=== PATIENT | male | born 1970 | race Caucasian/White ===

== ENCOUNTER 2023-02-04 10:40 | Day surgery (SDC) | payer OTHER ==
[2023-02-04] MEDS ORDERED: Depo-Medrol 40 MG/ML IM ONE (10:41)
[2023-02-04] MEDS ORDERED: Sodium Chloride 0.9(Preservative Free) 10 ML IJ ONE (10:41)
[2023-02-04] MEDS ORDERED: DIPRIVAN 200 MG/20 ML IV ONE (12:49)
--- NOTE | 2023-02-04 14:53 | XRAY ---
Indication: Left L4-S1 transforaminal JOSE DANIEL. Intraoperative fluoroscopy provided for 22 seconds. 3 digital spot image submitted for interpretation demonstrates posterior needle tips projecting over the expected left L4 and L4-L5 nerve roots. Small amount of contrast injected for needle tip placement. Correlate with intraoperative findings/report.
--- NOTE | 2023-02-04 15:05 | XRAY ---
22 seconds of fluoroscopy was used in surgery for a left L4-S1 transforaminal JOSE DANIEL.
[2023-02-04] MEDS ORDERED: Lactated Ringers 1,000 ML IV ONE (15:20)
== END 2023-02-04 13:15 | disposition home or self-care (01) ==
LOC: SDC-PAIN 10:40
PROVIDERS: ATTEND Psychiatry & Neurology Pain Medicine
DX: M54.16 Radiculopathy, lumbar region (principal); Z79.899 Other long term (current) drug therapy
CPT/HCPCS: 64483; 64484; 72100; 77003; J1030; J2704; Q9966

== ENCOUNTER 2023-03-25 12:14 | Day surgery (SDC) | payer OTHER ==
[2023-03-25] MEDS ORDERED: BUPIVACAINE 0.5% VIAL IJ ONE (12:15)
[2023-03-25] MEDS ORDERED: Depo-Medrol 40 MG/ML IM ONE (12:15)
[2023-03-25] MEDS ORDERED: LIDOCAINE HCL 1% 50 MG/5 ML VL PF IJ ONE (12:15)
[2023-03-25] MEDS ORDERED: Decadron 4 MG INJ IV ONE (12:15)
[2023-03-25] MEDS ORDERED: DIPRIVAN 200 MG/20 ML IV ONE ×2 (13:34→13:40)
[2023-03-25] MEDS ORDERED: Lactated Ringers 1,000 ML IV ONE (16:01)
--- NOTE | 2023-03-25 16:34 | XRAY ---
Indication: Bilateral SI joint and bilateral piriformis injection. Intraoperative fluoroscopy provided for 41 seconds. 7 digital spot images submitted for interpretation demonstrates posterior needle tip projecting over the expected left and right SI joint. Additional posterior needle tips projects over the left and right piriformis muscles with small amount of contrast injected for needle tip placement. Correlate with intraoperative findings/report.
--- NOTE | 2023-03-25 16:50 | XRAY ---
41 seconds of fluoroscopy was used in surgery for a bilateral sacroiliac joint and bilateral piriformis injection.
== END 2023-03-25 14:03 | disposition home or self-care (01) ==
LOC: SDC-PAIN 12:14
PROVIDERS: ATTEND Psychiatry & Neurology Pain Medicine
DX: M46.1 Sacroiliitis, not elsewhere classified (principal); M79.18 Myalgia, other site; Z79.899 Other long term (current) drug therapy
CPT/HCPCS: 01992; 20552; 27096; 72202; 77002; G0260; J1030; J1100; J2001; J2704; Q9966

== ENCOUNTER 2023-08-12 12:43 | Day surgery (SDC) | payer OTHER ==
[2023-08-12] MEDS ORDERED: Decadron 4 MG INJ IV ONE (12:44)
[2023-08-12] MEDS ORDERED: Sodium Chloride 0.9(Preservative Free) 10 ML IJ ONE (12:44)
[2023-08-12] MEDS ORDERED: Depo-Medrol 40 MG/ML IM ONE (12:44)
[2023-08-12] MEDS ORDERED: XYLOCAINE-MPF 1% 5ML SDV IJ ONE (12:44)
[2023-08-12] MEDS ORDERED: DIPRIVAN 200 MG/20 ML IV ONE (15:33)
[2023-08-12] MEDS ORDERED: MORPHINE SULFATE 2 MG INJ ONE (15:54)
[2023-08-12] MEDS ORDERED: Lactated Ringers 1,000 ML IV ONE (16:09)
--- NOTE | 2023-08-12 16:56 | XRAY ---
Indication: Caudal JOSE DANIEL. Intraoperative fluoroscopy provided for 14 seconds. 2 digital spot image submitted for interpretation demonstrates caudal needle tip projecting mid sacrum. Small amount of contrast injected for needle tip placement. Correlate with intraoperative findings/report.
--- NOTE | 2023-08-12 16:56 | XRAY ---
Indication: Bilateral piriformis injection. Intraoperative fluoroscopy provided for 14 seconds. 2 digital spot image submitted for interpretation demonstrates posterior needle tip projecting over left and right piriformis. Small amount of contrast injected for needle tip placement. Correlate with intraoperative findings/report.
--- NOTE | 2023-08-12 17:02 | XRAY ---
14 seconds of fluoroscopy was used in surgery for a caudal JOSE DANIEL.
--- NOTE | 2023-08-12 17:02 | XRAY ---
14 seconds of fluoroscopy was used in surgery for a bilateral piriformis injection.
== END 2023-08-12 16:15 | disposition home or self-care (01) ==
LOC: SDC-PAIN 12:43
PROVIDERS: ATTEND Psychiatry & Neurology Pain Medicine
DX: M54.16 Radiculopathy, lumbar region (principal); M79.18 Myalgia, other site; Z79.899 Other long term (current) drug therapy
CPT/HCPCS: 20552; 62323; 72170; 72220; 77002; 77003; J1030; J1100; J2270; J2704; Q9966